=== PATIENT | male | born 1975 | race Hispanic/Latino ===

== ENCOUNTER 2020-08-13 11:21 | Emergency (ER) | payer SELFPAY ==
--- NOTE | 2020-08-13 12:26 | EDPHYS ---
Physician Documentation [facility] Name: David Urbina Age: 44 yrs Sex: Male : 1975 Arrival Date: 08/13/2020 Time: 11:24 Bed 19 Private MD: ED Physician Omid Mccartney HPI: 08/13 12:09 This 44 yrs old Male presents to ER via Ambulatory with complaints of Rash. diony Historical: - Allergies: 11:32 No Known Allergies; aa5 - Home Meds: 11:32 None [Active]; aa5 - PMHx: 11:32 None; aa5 - Immunization history:: Adult Immunizations up to date. - Social history:: Smoking status: Patient/guardian denies using tobacco. ROS: 12:18 Constitutional: Negative for fever, chills, and weight loss, Eyes: Negative for injury, diony pain, redness, and discharge, ENT: Negative for injury, pain, and discharge, Neck: Negative for injury, pain, and swelling, Cardiovascular: Negative for chest pain, palpitations, and edema, Respiratory: Negative for shortness of breath, cough, wheezing, and pleuritic chest pain, Abdomen/GI: Negative for abdominal pain, nausea, vomiting, diarrhea, and constipation, Back: Negative for injury and pain, : Negative for injury, bleeding, discharge, and swelling, MS/Extremity: Negative for injury and deformity, Neuro: Negative for headache, weakness, numbness, tingling, and seizure, Psych: Negative for depression, anxiety, suicide ideation, homicidal ideation, and hallucinations, Allergy/Immunology: Negative for hives, rash, and allergies, Endocrine: Negative for neck swelling, polydipsia, polyuria, polyphagia, and marked weight changes, Hematologic/Lymphatic: Negative for swollen nodes, abnormal bleeding, and unusual bruising. 12:18 Skin: Positive for rash, swelling. Exam: 12:18 Constitutional: This is a well developed, well nourished patient who is awake, alert, diony and in no acute distress. Head/Face: Normocephalic, atraumatic. Eyes: Pupils equal round and reactive to light, extra-ocular motions intact. Lids and lashes normal. Conjunctiva and sclera are non-icteric and not injected. Cornea within normal limits. Periorbital areas with no swelling, redness, or edema. ENT: Nares patent. No nasal discharge, no septal abnormalities noted. Tympanic membranes are normal and external auditory canals are clear. Oropharynx with no redness, swelling, or masses, exudates, or evidence of obstruction, uvula midline. Mucous membranes moist. Neck: Trachea midline, no thyromegaly or masses palpated, and no cervical lymphadenopathy. Supple, full range of motion without nuchal rigidity, or vertebral point tenderness. No Meningismus. Chest/axilla: Normal chest wall appearance and motion. Nontender with no deformity. No lesions are appreciated. Cardiovascular: Regular rate and rhythm with a normal S1 and S2. No gallops, murmurs, or rubs. Normal PMI, no JVD. No pulse deficits. Respiratory: Lungs have equal breath sounds bilaterally, clear to auscultation and percussion. No rales, rhonchi or wheezes noted. No increased work of breathing, no retractions or nasal flaring. Back: No spinal tenderness. No costovertebral tenderness. Full range of motion. Male : Normal genitalia with no discharge or lesions. MS/ Extremity: Pulses equal, no cyanosis. Neurovascular intact. Full, normal range of motion. Neuro: Awake and alert, GCS 15, oriented to person, place, time, and situation. Cranial nerves II-XII grossly intact. Motor strength 5/5 in all extremities. Sensory grossly intact. Cerebellar exam normal. Normal gait. Psych: Awake, alert, with orientation to person, place and time. Behavior, mood, and affect are within normal limits. 12:18 Respiratory: Exam negative for 12:18 Skin: zoster. Vital Signs: 11:28 BP 122 / 87; Pulse 83; Resp 18; Temp 98.0; Pulse Ox 100% on R/A; Weight 74.84 kg (R); aa5 Height 5 ft. 1 in. (154.94 cm) (R); Pain 10; 11:28 Body Mass Index 31.18 (74.84 kg, 154.94 cm) aa5 MDM: 11:36 Patient medically screened. diony 12:23 Differential diagnosis: impetigo, varicella, allergic reaction, parasite infection. diony Data reviewed: vital signs, nurses notes. Data interpreted: environmental monitoring specialist: not applicable for this patient encounter. rate is 83 beats/min, rhythm is regular, Pulse oximetry: on room air is 100 %. Test interpretation: by ED physician or midlevel provider:. Counseling: I had a detailed discussion with the patient and/or guardian regarding: the historical points, exam findings, and any diagnostic results supporting the discharge/admit diagnosis, lab results. Administered Medications: 12:25 Drug: valACYclovir 1000 mg Route: PO; zb Disposition: 08/13/20 12:25 Discharged to Home. Impression: Zoster [herpes zoster], Zoster without complications. - Condition is Stable. - Discharge Instructions: Shingles, Shingles, [id number]. - Prescriptions for Valtrex 1 g Oral Tablet - take 1 tablet by ORAL route every 8 hours for 7 days; 21 tablet. gabapentin 300 mg Oral capsule - take 1 capsule by ORAL route 3 times per day; 21 capsule. Ibuprofen 600 mg Oral Tablet - take 1 tablet by ORAL route every 8 hours As needed take with food; 21 tablet. - Medication Reconciliation Form, Thank You Letter, Antibiotic Education, Prescription Opioid Use form. - Follow up: Private Physician; When: 2 - 3 days; Reason: Recheck today's complaints, Continuance of care, Re-evaluation by your physician. Follow up: Mynor Hunter MD; When: 2 - 3 days; Reason: Recheck today's complaints, Re-evaluation by your physician. - Problem is new. - Symptoms have improved. Signatures: Omid Mccartney MD MD cha Calderon, Audri, RN RN aa5 Sarah Blackmon RN RN zb Corrections: (The following items were deleted from the chart) 12:44 12:25 08/13/2020 12:25 Discharged to Home. Impression: Zoster [herpes zoster]; Zoster zb without complications. Condition is Stable. Forms are Medication Reconciliation Form, Thank You Letter, Antibiotic Education, Prescription Opioid Use. Follow up: Private Physician; When: 2 - 3 days; Reason: Recheck today's complaints, Continuance of care, Re-evaluation by your physician. Follow up: Mynor Hunter; When: 2 - 3 days; Reason: Recheck today's complaints, Re-evaluation by your physician. Problem is new. Symptoms have improved. diony
--- NOTE | 2020-08-13 12:26 | ER ---
Nurse's Notes [facility] Name: David Urbina Age: 44 yrs Sex: Male : 1975 Arrival Date: 08/13/2020 Time: 11:24 Bed 19 Private MD: Diagnosis: Zoster [herpes zoster];Zoster without complications Presentation: 08/13 11:28 Chief complaint: Patient states: Rash to chest and back that thayer. Coronavirus screen: aa5 Client denies travel out of the [place] in the last 14 days. At this time, the client does not indicate any symptoms associated with coronavirus-19. Ebola Screen: Patient denies travel to an Ebola-affected area in the 21 days before illness onset. Initial Sepsis Screen: Does the patient meet any 2 criteria? No. Patient's initial sepsis screen is negative. Does the patient have a suspected source of infection? No. Patient's initial sepsis screen is negative. Risk Assessment: Do you want to hurt yourself or someone else? Patient reports no desire to harm self or others. Onset of symptoms was July 2020. 11:28 Method Of Arrival: Ambulatory aa5 11:28 Acuity: ALTAGRACIA 4 aa5 Triage Assessment: 11:32 General: Appears in no apparent distress. comfortable, Behavior is calm, cooperative, aa5 appropriate for age. Pain: Complains of pain in anterior aspect of right upper chest. Neuro: Level of Consciousness is awake, alert, obeys commands. Cardiovascular: Patient's skin is warm and dry. Respiratory: Airway is patent Respiratory effort is even, unlabored, Respiratory pattern is regular, symmetrical. Derm: Rash noted that is on back and chest. Musculoskeletal: Circulation, motion, and sensation intact. Historical: - Allergies: 11:32 No Known Allergies; aa5 - Home Meds: 11:32 None [Active]; aa5 - PMHx: 11:32 None; aa5 - Immunization history:: Adult Immunizations up to date. - Social history:: Smoking status: Patient/guardian denies using tobacco. Screenin:15 Abuse screen: Denies threats or abuse. Denies injuries from another. Nutritional zb screening: No deficits noted. Tuberculosis screening: No symptoms or risk factors identified. Fall Risk None identified. Assessment: 12:15 General: Appears in no apparent distress. Behavior is calm, cooperative, appropriate zb for age. Pain: Complains of pain in back and chest and anterior aspect of right upper chest Pain does not radiate. Pain currently is 1 out of 10 on a pain scale. Quality of pain is described as burning, sharp. Neuro: Cardiovascular: No deficits noted. Respiratory: No deficits noted. GI: No deficits noted. : No deficits noted. Derm: Skin is intact, is healthy with good turgor, Skin is dry, Skin is normal, Rash noted that is raised, vesicular. Musculoskeletal: Circulation, motion, and sensation intact. Range of motion: intact in all extremities. Vital Signs: 11:28 BP 122 / 87; Pulse 83; Resp 18; Temp 98.0; Pulse Ox 100% on R/A; Weight 74.84 kg (R); aa5 Height 5 ft. 1 in. (154.94 cm) (R); Pain 04/10; 11:28 Body Mass Index 31.18 (74.84 kg, 154.94 cm) aa5 ED Course: 11:24 Patient arrived in ED. am2 11:31 Triage completed. aa5 11:32 Arm band placed on Patient placed in an exam room. aa5 11:34 Kulwinder Pascual RN is Primary Nurse. kellie 11:36 Omid Mccartney MD is Attending Physician. diony 12:15 Patient has correct armband on for positive identification. Bed in low position. Call zb light in reach. Pulse ox on. NIBP on. Door closed. Noise minimized. 12:24 Mynor Hunter MD is Referral Physician. diony 12:30 No provider procedures requiring assistance completed. Patient did not have IV access zb during this emergency room visit. Administered Medications: 12:25 Drug: valACYclovir 1000 mg Route: PO; zb Outcome: 12:25 Discharge ordered by MD. diony 12:30 Discharged to home ambulatory. zb 12:30 Condition: stable 12:30 Discharge instructions given to patient, Instructed on discharge instructions, follow up and referral plans. medication usage, Demonstrated understanding of medications, Prescriptions given X 3. 12:44 Patient left the ED. zb Signatures: Omid Mccartney MD MD cha Calderon, Audri, RN RN aa5 Nanette Garcia am2 Kulwinder Pascual RN RN jd3 Brown, Sarah, RN RN zb
[2020-08-13] MEDS ORDERED: VALACYCLOVIR 500 MG TAB ONE (12:41)
[2020-08-13 12:52] VITALS: BP 122/87; TEMP 98; O2SAT 100
== END 2020-08-13 12:44 | disposition home or self-care (01) ==
LOC: ER 11:21
DX: B02.9 Zoster without complications (principal)
CPT/HCPCS: 99283